=== PATIENT | male | born 1960 | race Caucasian/White ===

== ENCOUNTER 2018-10-03 10:08 | Outpatient (CLI) | payer BC ==
--- NOTE | 2018-10-03 11:56 | RAD ---
LUMBAR SPINE TWO VIEWS: HISTORY: Back pain. COMPARISON: None. FINDINGS: No fracture. No malalignment. Mild narrowing of the L5-S1 disk space. Mild facet arthrosis at L4-L5 and L5-S1. IMPRESSION: Mild degenerative changes. No acute abnormality. POS: CET
== END 2018-10-03 10:09 | disposition home or self-care (01) ==
LOC: BICRAD 10:08
PROVIDERS: ATTEND Nurse Practitioner Family
DX: M47.26 Other spondylosis with radiculopathy, lumbar region (principal)
CPT/HCPCS: 72100

== ENCOUNTER 2021-08-26 07:23 | Outpatient (CLI) | payer BC ==
[2021-08-26] MEDS ORDERED: Iopamidol-370 76% 500 ML 1 ML ONE (09:44)
== END 2021-08-26 07:24 | disposition home or self-care (01) ==
LOC: BICCT 07:23
PROVIDERS: ATTEND Physician Assistant Medical
DX: R79.89 Other specified abnormal findings of blood chemistry (principal); R10.31 Right lower quadrant pain; K51.20 Ulcerative (chronic) proctitis without complications; K57.30 Diverticulosis of large intestine without perforation or abscess without bleeding
CPT/HCPCS: 74177; 82565; Q9967

== ENCOUNTER 2022-04-18 07:41 | Outpatient (CLI) | payer BC | END 2022-04-18 07:42 | disposition home or self-care (01) | LOC: RAD 07:41 | PROVIDERS: ATTEND Specialist | DX: K66.0 Peritoneal adhesions (postprocedural) (postinfection) (principal) | CPT/HCPCS: 74250 ==

== ENCOUNTER 2022-06-21 06:48 | Outpatient (CLI) | payer BC | END 2022-06-21 06:49 | disposition home or self-care (01) | LOC: BICULT 06:48 | PROVIDERS: ATTEND Specialist | DX: R10.11 Right upper quadrant pain (principal); S39.91XA Unspecified injury of abdomen, initial encounter; N32.89 Other specified disorders of bladder | CPT/HCPCS: 76700; 76857 ==

== ENCOUNTER 2023-06-08 08:43 | Outpatient (CLI) | payer BC | END 2023-06-08 08:44 | disposition home or self-care (01) | LOC: BICRAD 08:43 | PROVIDERS: ATTEND Family Medicine | DX: M54.50 Low back pain, unspecified (principal); M47.816 Spondylosis without myelopathy or radiculopathy, lumbar region | CPT/HCPCS: 72100 ==

== ENCOUNTER 2023-08-27 14:03 | Outpatient (CLI) | payer BC | END 2023-08-27 14:04 | disposition home or self-care (01) | LOC: BICRAD 14:03 | PROVIDERS: ATTEND Podiatrist | DX: M72.2 Plantar fascial fibromatosis (principal) ==

== ENCOUNTER 2023-09-11 07:48 | Outpatient (CLI) | payer BC | END 2023-09-11 07:49 | disposition home or self-care (01) | LOC: SCSMRI 07:48 | PROVIDERS: ATTEND Specialist | DX: M48.061 Spinal stenosis, lumbar region without neurogenic claudication (principal); M51.36 Other intervertebral disc degeneration, lumbar region; M51.37 Other intervertebral disc degeneration, lumbosacral region | CPT/HCPCS: 72148 ==

== ENCOUNTER 2024-12-23 07:23 | Outpatient (CLI) | payer BC | END 2024-12-23 07:24 | disposition home or self-care (01) | LOC: BICMRI 07:23 | PROVIDERS: ATTEND Specialist | DX: M47.22 Other spondylosis with radiculopathy, cervical region (principal); M47.23 Other spondylosis with radiculopathy, cervicothoracic region | CPT/HCPCS: 72141 ==